=== PATIENT | male | born 1970 | race Caucasian/White ===

== ENCOUNTER → 2016-09-07 | Outpatient (CLI) | payer OTHER ==
[2016-09-07 10:06] LABS: HEMOGLOBIN A1C 10.34 % (4.2-6.0)
[2016-09-07 10:15] LABS: BLOOD UREA NITROGEN 29 mg/dL (7-22); BUN/CREATININE RATIO 32.22 (6-20); CALCIUM 10.2 mg/dL (8.7-10.7); EST GLOMERULAR FILTRATION > 60 (>60 ml/min/1.73m(2)); SERUM ALBUMIN 4.6 g/dL (3.5-4.8)
[2016-09-07 10:22] LABS: BASOPHILS # (AUTO) 0.06 10*3/UL; BASOPHILS % (AUTO) 0.8 % (0-1); EOSINOPHILS # (AUTO) 0.49 10*3/UL; EOSINOPHILS % (AUTO) 6.6 % (0-8); HEMATOCRIT 46.4 % (42.0-52.0); HEMOGLOBIN 15.6 g/dL (14.0-18.0); LYMPHOCYTES # (AUTO) 1.97 10*3/uL; MEAN CORPUSCULAR HEMOGLOBIN 27.3 PG (27-31); MEAN CORPUSCULAR HGB CONC 33.6 g/dL (33-37); MEAN CORPUSCULAR VOLUME 81.1 FL (80-90); MEAN PLATELET VOLUME 8.9 FL (7.4-12.2); MONOCYTES % (AUTO) 10.8 % (5-15); NEUTROPHILS # (AUTO) 4.02 10*3/UL; RED BLOOD COUNT 5.72 10^6/uL (4.70-6.10)
[2016-09-07 10:48] LABS: PLATELET MORPHOLOGY COMMENT NORMAL MORPHOLOGY (NORM); RBC MORPHOLOGY COMMENT NORMAL MORPHOLOGY (NORM); WBC MORPHOLOGY COMMENT NORMAL MORPHOLOGY (NORM)
== END ==
LOC: MOB LAB 08:38
PROVIDERS: ATTEND Family Medicine
DX: E11.9 Type 2 diabetes mellitus without complications (principal); E29.1 Testicular hypofunction; F17.220 Nicotine dependence, chewing tobacco, uncomplicated
CPT/HCPCS: 36415; 80053; 82670; 83036; 84146; 84153; 84403; 85025

== ENCOUNTER → 2016-12-02 | Outpatient (CLI) | payer OTHER ==
[2016-12-02 11:01] LABS: HEMOGLOBIN A1C 9.47 % (4.2-6.0)
== END ==
LOC: MOB LAB 09:17
PROVIDERS: ATTEND Family Medicine
DX: E11.9 Type 2 diabetes mellitus without complications (principal)
CPT/HCPCS: 83036

== ENCOUNTER → 2016-12-28 | Outpatient (CLI) | payer OTHER ==
[2016-12-28 11:47] LABS: BLOOD UREA NITROGEN 18 mg/dL (7-22); CALCIUM 8.3 mg/dL (8.7-10.7); EST GLOMERULAR FILTRATION > 60 (>60 ml/min/1.73m(2))
[2016-12-28 12:32] LABS: HEMATOCRIT 27.6 % (42.0-52.0); HEMOGLOBIN 8.4 g/dL (14.0-18.0); MEAN CORPUSCULAR HEMOGLOBIN 27.3 PG (27-31); MEAN CORPUSCULAR HGB CONC 30.4 g/dL (33-37); MEAN CORPUSCULAR VOLUME 89.6 FL (80-90); MEAN PLATELET VOLUME 9.3 FL (7.4-12.2); RED BLOOD COUNT 3.08 10^6/uL (4.70-6.10)
== END ==
LOC: MOB LAB 09:36
PROVIDERS: ATTEND Physician Assistant Medical
DX: Z95.5 Presence of coronary angioplasty implant and graft (principal)
CPT/HCPCS: 36415; 80048; 85027

== ENCOUNTER → 2017-01-04 | Outpatient (CLI) | payer OTHER ==
[2017-01-04 12:06] LABS: BLOOD UREA NITROGEN 19 mg/dL (7-22); BUN/CREATININE RATIO 23.75 (6-20); CALCIUM 8.6 mg/dL (8.7-10.7); EST GLOMERULAR FILTRATION > 60 (>60 ml/min/1.73m(2))
== END ==
LOC: MOB LAB 09:52
PROVIDERS: ATTEND Nurse Practitioner Family
DX: I10 Essential (primary) hypertension (principal)
CPT/HCPCS: 36415; 80048